=== PATIENT | female | born 1970 | race Caucasian/White ===

== ENCOUNTER 2016-09-07 08:30 | Emergency (ER) | payer SELFPAY | END 2016-09-07 11:30 | disposition home or self-care (01) | LOC: ER1 08:30 | DX: S09.90XA Unspecified injury of head, initial encounter (principal); S13.9XXA Sprain of joints and ligaments of unspecified parts of neck, initial encounter; S33.5XXA Sprain of ligaments of lumbar spine, initial encounter; F41.9 Anxiety disorder, unspecified; F32.9 Major depressive disorder, single episode, unspecified; V43.52XA Car driver injured in collision with other type car in traffic accident, initial encounter; Y92.410 Unspecified street and highway as the place of occurrence of the external cause; Z79.899 Other long term (current) drug therapy | CPT/HCPCS: 70450; 71020; 72072; 72125; 72131; 84703; 99284 ==

== ENCOUNTER → 2016-11-09 | Outpatient (CLI) | payer BC, MEDICARE | LOC: MAMO 13:20 | DX: Z12.31 Encounter for screening mammogram for malignant neoplasm of breast (principal); Z80.3 Family history of malignant neoplasm of breast | CPT/HCPCS: G0202 ==

== ENCOUNTER → 2016-11-15 | Outpatient (CLI) | payer BC, MEDICARE | LOC: MAMO 11-14 09:00 | DX: R92.8 Other abnormal and inconclusive findings on diagnostic imaging of breast (principal); M25.511 Pain in right shoulder; R92.0 Mammographic microcalcification found on diagnostic imaging of breast; R92.1 Mammographic calcification found on diagnostic imaging of breast | CPT/HCPCS: 73030; G0206 ==

== ENCOUNTER → 2020-12-07 | Outpatient (CLI) | payer BC, MEDICARE | LOC: KOH-I 14:30 | DX: M51.17 Intervertebral disc disorders with radiculopathy, lumbosacral region (principal); N28.89 Other specified disorders of kidney and ureter | CPT/HCPCS: 72100 ==

== ENCOUNTER → 2021-05-12 | Outpatient (CLI) | payer BC, MEDICARE | LOC: MAMO 08:24 | DX: Z12.31 Encounter for screening mammogram for malignant neoplasm of breast (principal); Z00.00 Encounter for general adult medical examination without abnormal findings; Z88.5 Allergy status to narcotic agent | CPT/HCPCS: 77063; 77067 ==

== ENCOUNTER → 2022-02-06 | Outpatient (CLI) | payer BC, MEDICARE | LOC: EROP 12:17 | DX: U07.1 COVID-19 (principal); Z23 Encounter for immunization | CPT/HCPCS: M0222; Q0222 ==